=== PATIENT | male | born 1970 | race Caucasian/White ===

== ENCOUNTER 2019-05-11 13:33 | Day surgery (SDC) | payer BC ==
[2019-05-11] MEDS ORDERED: PROPOFOL 10 MG/ML VIAL IV ONE (13:34)
[2019-05-11] MEDS ORDERED: MIDAZOLAM HCL 2MG/2ML VIAL IV ONE (13:34)
[2019-05-11] MEDS ORDERED: LIDOCAINE 2% MDV (20MG/ML) 20ML VIAL IV ONE (13:34)
--- NOTE | 2019-05-17 12:22 | Operative Note ---
OPERATION: COLONOSCOPY with cold snare polypectomy. PREOPERATIVE DIAGNOSIS: Secondary family history of colon cancer and need for screening. POSTOPERATIVE DIAGNOSES: 1. Ascending colon polyp. 2. Sigmoid diverticulosis. PROCEDURE: After informed consent was obtained from the patient, he was placed in the left lateral decubitus position in the endoscopy suite, sedated and monitored by the department of anesthesia. Digital rectal examination was unremarkable. A well-lubricated CF160 colonoscope was inserted into the rectum and advanced to the cecum. Preparation quality was good. The cecum, cecal bulb, ileocecal valve, and appendiceal orifice were unremarkable. There was an 8-9 mm sessile polyp in the ascending colon removed with a cold snare. A hemoclip was applied to the site for wound closure purposes. There was scant bleeding noted. The polyp was retrieved. The remainder of the ascending colon, transverse colon, and descending colon were unremarkable. The sigmoid colon revealed mild diverticular changes. No polyps or mass lesions were seen. The rectum was unremarkable in forward and in J-turn views. The endoscope was straightened, the rectal ampulla deflated, and the endoscope was removed. RECOMMENDATIONS: I would suggest the patient follow a high-fiber diet. He will require repeat exam in 3-5 years pending tissue histology. As always, thank you for allowing me to participate in the healthcare of your patients. [facility]
== END 2019-05-11 15:15 | disposition home or self-care (01) ==
LOC: HOP 13:33
PROVIDERS: ATTEND Internal Medicine Gastroenterology
DX: Z12.11 Encounter for screening for malignant neoplasm of colon (principal); Z80.0 Family history of malignant neoplasm of digestive organs; D12.2 Benign neoplasm of ascending colon; K57.30 Diverticulosis of large intestine without perforation or abscess without bleeding